=== PATIENT | male | born 1955 | race Caucasian/White ===

== ENCOUNTER 2017-07-24 10:07 | Outpatient (CLI) | payer BC ==
--- NOTE | 2017-07-24 15:24 | CT ---
LUMBAR SPINE CT WITHOUT IV CONTRAST: HISTORY: A 61-year-old male with low back pain and left buttock pain for two weeks. FINDINGS: There are generalized changes of spondylosis with disk osteophytosis and facet arthrosis. Incidenta l note of horseshoe kidneys. The T12-L1, L1-L2, and L2-L3 disks demonstrate some ligament and facet hypertrophic changes without significant central canal, lateral recess, or foraminal stenosis. At L3-L4, there is a broad-based disk bulge and disk osteophytic change with some moderate central c anal and bilateral lateral recess stenosis. At L4-L5, there is some very minute anterolisthesis. There appears to be a fairly large left irish moss bleacher olateral disk protrusion projecting into the left foramen with some moderate central canal and later al recess stenosis and severe left foraminal stenosis. At L5-S1, there is diffuse disk bulging without significant foraminal stenosis. IMPRESSION: 1. Spondylosis. 2. Large left posterolateral protrusion at L4-L5, with marked left foraminal stenosis and moderate central canal and lateral recess stenosis. 3. Diffuse disk bulging with ligament and facet hypertrophic changes with moderate central canal an d lateral recess stenosis at L3-L4 with very minute anterolisthesis. 4. No evidence for acute fracture. 5. Incidental note of bilateral horseshoe kidney. POS: [facility]
== END 2017-07-24 10:08 | disposition home or self-care (01) ==
LOC: SCSCT 10:07
PROVIDERS: ATTEND Family Medicine
DX: M46.1 Sacroiliitis, not elsewhere classified (principal); M54.30 Sciatica, unspecified side; M47.896 Other spondylosis, lumbar region; M51.26 Other intervertebral disc displacement, lumbar region
CPT/HCPCS: 72131

== ENCOUNTER 2017-09-14 07:01 | Outpatient (CLI) | payer BC | END 2017-09-14 07:02 | disposition home or self-care (01) | LOC: BICMRI 07:01 | PROVIDERS: ATTEND Neurological Surgery | DX: M48.061 Spinal stenosis, lumbar region without neurogenic claudication (principal); Q76.2 Congenital spondylolisthesis; M47.896 Other spondylosis, lumbar region; Q63.1 Lobulated, fused and horseshoe kidney | CPT/HCPCS: 72148 ==

== ENCOUNTER 2018-02-14 11:38 | Outpatient (CLI) | payer BC | END 2018-02-14 11:39 | disposition home or self-care (01) | LOC: BICRAD 11:38 | PROVIDERS: ATTEND Family Medicine | DX: S20.229A Contusion of unspecified back wall of thorax, initial encounter (principal); Z98.890 Other specified postprocedural states | CPT/HCPCS: 71046 ==

== ENCOUNTER 2018-02-16 10:15 | Emergency (ER) | payer BC ==
[2018-02-16] MEDS ORDERED: Diazepam 5 MG TAB ONE (10:46)
--- NOTE | 2018-02-16 11:44 | RAD ---
PA CHEST RADIOGRAPH WITH 2 VIEWS OF THE LEFT RIBS: DATE: 02/16/18. PROVIDED CLINICAL HISTORY: Back pain status post injury. FINDINGS: No comparisons. The cardiac silhouette appears enlarged. Median sternotomy changes are seen. No fo mark consolidation, pleural fluid, or pneumothorax apparent. No evidence for displaced left-sided rib fracture. IMPRESSION: 1. No evidence for an acute process. 2. Cardiomegaly. POS: [facility]
== END 2018-02-16 11:50 | disposition home or self-care (01) ==
LOC: SCSER 10:15
DX: M62.830 Muscle spasm of back (principal); E11.9 Type 2 diabetes mellitus without complications; E78.5 Hyperlipidemia, unspecified; I10 Essential (primary) hypertension; Z79.82 Long term (current) use of aspirin; Z79.899 Other long term (current) drug therapy

== ENCOUNTER 2018-02-27 12:46 | Emergency (ER) | payer BC ==
[2018-02-27 13:19] LABS: Bilirubin Negative (Negative); Blood, Urine Negative (Negative); Clarity CLEAR (Clear); Glucose, Urine (Dipstick) >=1000 mg/dL (Negative); Leukocyte Negative (Negative); Nitrite Negative (Negative); Protein, Urine (Dipstick) Negative (Neg-Trace); Specific Gravity, Urine 1.034 (1.002-1.036); Urobilinogen 0.2 mg/dL (0.2-1.0); pH, Urine 6.5 (5.0-9.0)
--- NOTE | 2018-03-10 15:09 | EKG ---
Test Reason : Blood Pressure : / mmHG Vent. Rate : 086 BPM Atrial Rate : 086 BPM P-R Int : 136 ms QRS Dur : 084 ms QT Int : 342 ms P-R-T Axes : 019 -41 046 degrees QTc Int : 409 ms Normal sinus rhythm Possible Left atrial enlargement Left axis deviation Possible Lateral infarct , age undetermined Abnormal ECG Confirmed by MICHAEL WARD ([id number]), newspaper editor BRIAN DEL ROSARIO ([id number]) on 03/10/2018 3:09:16 PM Referred By: Confirmed By:MICHAEL WARD
== END 2018-02-27 14:04 | disposition home or self-care (01) ==
LOC: ERS 12:46
DX: M62.830 Muscle spasm of back (principal); E78.5 Hyperlipidemia, unspecified; E11.9 Type 2 diabetes mellitus without complications; I10 Essential (primary) hypertension; W18.30XA Fall on same level, unspecified, initial encounter
CPT/HCPCS: 81003; 93005

== ENCOUNTER 2018-07-09 10:25 | Outpatient (CLI) | payer BC ==
[~2018-07-09 10:25] MED LIST: Gadobenate Dimeglumine 529 MG/1 ML (20ML VIAL) ONE
--- NOTE | 2018-07-09 16:49 | MRI ---
PRE AND POST CONTRAST ENHANCED MRI THORACIC SPINE: HISTORY: Patient with osteomyelitis. COMPARISON: 03/02/2018 TECHNIQUE: Multiplanar, multisequence pre and post contrast enhanced MR images of the thoracic spine obtained. FINDINGS: Images demonstrate a continued area of signal abnormality involving the left T8 and T9 vertebrae. Th e area of signal abnormality extends into the left T9 pedicle and the adjacent base of the left T9 ri b. It also extends into the left T9 paravertebral space. The overall appearance has not significant ly changed since the previous exam. The disk itself is not involved. I am concerned that this may r epresent possible left vertebral and paravertebral mass, including metastatic disease or malignancy. The overall appearance has not significantly changed since the previous comparison MRI. A neurosurg ical consultation is recommended. I would suspect that, if this was an infection, it should have mercy nged in the interim four months, as far as appearance. On MRI appearance, it is very similar to the previous comparison exam. In addition, the T8-T9 intervertebral disk also does not appear to be invo lved. The lesion does extend into the left T8-T9 neural foramen. Signal abnormality also extends in feriorly into the left T9-T10 neural foramen. IMPRESSION: Area of T8 and T9 signal abnormality extending into the epidural space at these levels and extending into the left T8-T9 and T9-T10 neural foramen. Malignancy cannot be excluded. Other possibilities c ould include a chronic infection. A neurosurgical consultation is recommended. POS: [facility]
== END 2018-07-09 10:26 | disposition home or self-care (01) ==
LOC: SCSMRI 10:25
PROVIDERS: ATTEND Internal Medicine Infectious Disease
DX: M46.24 Osteomyelitis of vertebra, thoracic region (principal)
CPT/HCPCS: 72157; 82565; A9579

== ENCOUNTER 2023-10-27 14:20 | Outpatient (CLI) | payer BC | END 2023-10-27 14:21 | disposition home or self-care (01) | LOC: SCSRAD 14:20 | PROVIDERS: ATTEND Internal Medicine | DX: M79.605 Pain in left leg (principal) ==